=== PATIENT | female | born 1995 | race Caucasian/White ===

== ENCOUNTER 2025-03-26 23:42 | Emergency (ER) | payer MEDICAID ==
[~2025-03-26] VITALS: Ht 165.1 cm; Wt 69.0 kg
[2025-03-26 23:54] VITALS: O2SAT 99
[2025-03-27] MEDS: HYDROCODONE/ACETAMINOPHEN 5/325MG TABLET PO ONE (01:13)
[2025-03-27] MEDS ORDERED: IBUP-1455 MT (02:28)
[2025-03-27] MEDS ORDERED: HYDR-4001 MT (02:28)
[2025-03-27] MEDS: KETOROLAC 30MG/ML VIAL IM ONE (03:09)
[2025-03-27 03:23] VITALS: BP 110/75; PULSE 79; RESP 18; TEMP 36.6; O2SAT 100
== END 2025-03-27 03:25 | disposition home or self-care (01) ==
LOC: ER 23:42
DX: S82.852A Displaced trimalleolar fracture of left lower leg, initial encounter for closed fracture (principal); X58.XXXA Exposure to other specified factors, initial encounter; Y93.89 Activity, other specified; Y92.89 Other specified places as the place of occurrence of the external cause; Y99.8 Other external cause status
CPT/HCPCS: 29515; 99284; 81025; 73610; 73630; 96372; J1885; Z7610